=== PATIENT | female | born 1950 | race African-American/Black ===

== ENCOUNTER 2016-08-28 19:26 | Emergency (ER) | payer MEDICAID ==
[~2016-08-28] VITALS: Ht 175.3 cm; Wt 77.1 kg
[2016-08-28 19:38] VITALS: BP 169/100
--- NOTE | 2016-08-28 20:40 | NUR ---
PT TAKEN TO BED 3
--- NOTE | 2016-08-28 20:41 | NUR ---
66F BIB SELF C/O REDNESS/SWELLING TO RT FOREHEAD, THROBBING, NON-RADIATING, 8/10 X TODAY; PT STATES " I THINK IT'S A BUG BITE. WHERE I AM STAYING THERE ARE FLEAS AND DOGS"; PT NOTED WITH SMALL "BUG BITES" TO LEFT ARM X 1 WEEK; NO BLEEDING OR DRAINAGE NOTED FROM SITES AT THIS TIME;PT C/O NON-PITTING MILD SWELLING TO BL ANKLES X 1 WEEK; PT STATES " MY ANKLES SWELL LIKE THIS FROM TIME TO TIME"; PT NOTED W/ MILD RASH TO NECK X 3-4 DAYS AND REQUESTING FOR MEDICATION REFILL; BL PEDAL PULSES PALPABLE, BL CAP REFILL < 2 SECONDS, NO LOSS OF SENSATION TO ANKLES AT THIS TIME; PT AMBULATES WITH CANE; PT AA&OX4, PERRLA, BL LUNG SOUNDS CLEAR, RR EVEN/UNLABORED, SKIN IS WARM/DRY AT THIS TIME; PT RESTING IN BED WITH HOB ELEVATED AND IN LOWEST POSITION; POSITIONED FOR COMFORT; ER MD MADE AWARE OF STATUS. WILL CONTINUE TO MONITOR.
--- NOTE | 2016-08-28 20:43 | NUR ---
Dr. Connolly evaluating patient at bedside.
[2016-08-28 21:01] VITALS: BP 115/72
--- NOTE | 2016-08-28 21:01 | NUR ---
Patient discharged with v/s stable. Written and verbal after care instructions given and explained. Patient alert, oriented and verbalized understanding of instructions. Ambulatory with steady gait. All questions addressed prior to discharge. ID band removed. Patient advised to follow up with PMD. Rx of ACETAMINOPHEN, DULERA 200MCG-5MCG/ACTUATION INHALATION AEROSOL, LORATADINE 10MG TAB, HYDROCORTISONE 2.5% TOPICAL OINTMENT & MONTELUKAST SODIUM 10MG TAB given. Patient educated on indication of medication including possible reaction and side effects. Opportunity to ask questions provided and answered.
== END 2016-08-28 21:01 | disposition home or self-care (01) ==
LOC: MED 19:26
DX: S50.862A Insect bite (nonvenomous) of left forearm, initial encounter (principal); S00.86XA Insect bite (nonvenomous) of other part of head, initial encounter; L25.9 Unspecified contact dermatitis, unspecified cause; W57.XXXA Bitten or stung by nonvenomous insect and other nonvenomous arthropods, initial encounter; Y93.89 Activity, other specified; Y92.89 Other specified places as the place of occurrence of the external cause; Y99.8 Other external cause status
CPT/HCPCS: 99283